=== PATIENT | female | born 1965 | race Caucasian/White ===

== ENCOUNTER 2017-02-13 18:28 | Emergency (ER) | payer BC ==
--- NOTE | 2017-02-13 18:43 | EDPHY ---
H & P Time Seen by Provider: 02/13/17 18:37 HPI/ROS: CHIEF COMPLAINT: Chest pain HISTORY OF PRESENT ILLNESS: The patient is a 51-year-old female presenting with shortness of breath. Onset of difficulty catching her breath 2 weeks ago. She has a frequent need to take a deep breath, but denies SOB with exertion. Associated with intermittent palpitations. She tried her son's albuterol inhaler and found no relief. She denies chest pain, lower extremity pain or swelling. Patient has no cardiac history. REVIEW OF SYSTEMS: A comprehensive 10 point review of systems is otherwise negative aside from elements mentioned in the history of present illness. Past Medical/Surgical History: Denies. Social History: . Lives in [place]. Smoking Status: Never smoked Physical Exam: General Appearance: Alert, pleasant Eyes: Pupils equal and round, no conjunctival pallor or injection ENT, Mouth: Mucous membranes moist Neck: Normal inspection Respiratory: normal respiratory rate, lungs are clear to auscultation, no wheezing Cardiovascular: Regular tachycardia Gastrointestinal: Abdomen is soft and non-tender Neurological: A&O, nonfocal, normal gait Skin: Warm and dry, no rash Extremities: Nontender, no pedal edema Psychiatric: Mood and affect normal Constitutional: Initial Vital Signs Temperature (C) 36.6 C 02/13/17 18:36 Heart Rate 108 H 02/13/17 18:36 Respiratory Rate 18 02/13/17 18:36 Blood Pressure 161/71 H 02/13/17 18:36 O2 Sat (%) 98 02/13/17 18:36 O2 Delivery Mode Room Air O2 (L/minute) 2 Allergies/Adverse Reactions: animal dander Allergy (Verified 02/13/17 18:36) Wheezing Home Medications: Medication Instructions Recorded NK [No Known Home Meds] 02/13/17 Medical Decision Making - Diagnostics EKG Interpretation: EKG interpreted by me reveals sinus tachycardia, rate 105, normal axis, normal intervals, ST and T segments normal. Interpretation: normal EKG Imaging Results: Chest X-Ray 02/13/17 18:38 Impression: No pneumonia. Imaging: Discussed imaging studies w/ photographic printer Radiologist ED Course/Re-evaluation: This patient presents with two weeks of dyspnea at rest. O2 sat 98% on RA, pt occasionally taking a very deep inspiration while I am examining her. Only physical exam finding is tachycardia, HR 90-110. Will order ddimer to eval for PE; no RF for PE. Chest x-ray is normal. D-dimer is slightly elevated. CTA chest ordered. CTA is negative for PE. Lab work is otherwise unremarkable. Patient now feels the need to take a deep inspiration frequently, but is unable to complete the deep inspiration. This is her main concern. Patient ambulated throughout the emergency department and her oxygen level remained 98% on room air. There is no evidence of pneumonia, pneumothorax, PE, acute coronary syndrome. TSH normal ; no evidence for thyrotoxicosis. Ativan 0.5 mg IV given for symptomatic relief. The patient felt better after Ativan. d/w pt anxiety as contributing factor to sx. I feel that she is safe/stable for d/c. She will follow up with her primary care physician. Differential Diagnosis: Differential diagnosis includes though it is not limited to pneumonia, pneumothorax, pulmonary embolism, aortic dissection, pericarditis, acute coronary syndrome. - Data Points Laboratory Results: Laboratory Results 02/13/17 18:53 02/13/17 18:53 Medications Given: Discontinued Medications Lorazepam (Ativan 1 Mg Prepack#4) 1 btl TAKEHOME EDNOW ONE Stop: 02/13/17 20:55 Last Admin: 02/13/17 21:10 Dose: 1 btl Lorazepam (Ativan Injection) 0.5 mg IVP EDNOW ONE Stop: 02/13/17 20:55 Last Admin: 02/13/17 21:10 Dose: 0.5 mg Departure - Departure Disposition: Home, Routine, Self-Care Clinical Impression: Dyspnea Qualifiers: Dyspnea type: shortness of breath Qualified Code(s): R06.02 - Shortness of breath; R06.00 - Dyspnea, unspecified; R06.01 - Orthopnea Condition: Good Instructions: Dyspnea (ED) Additional Instructions: You have a 9mm liver lesion. You will need to have a follow-up ultrasound to reassess this area. It is likely a cyst. Take 1/2 tab of Ativan every 12 hours as needed for anxiety. You are OK to fly. Please followup with your primary care physician when you return home. Referrals: Primary Care Physician, Out of state [Other] - As per Instructions Report Scribed for: Sofia Hill Report Scribed by: Mary Twila Date of Report: 02/13/17 Time of Report: 18:43 Physician Review and Approval Statement: 02/13/17 18:43 Portions of this note were transcribed by a medical officer. I personally performed the history, physical exam, and medical decision-making; and confirmed the accuracy of the information in the transcribed note.
--- NOTE | 2017-02-13 18:44 | CPEKG ---
Heart Rate: 105 RR Interval: 571 P-R Interval: 184 QRSD Interval: 86 QT Interval: 340 QTC Interval: 450 P [place]: 67 QRS [place]: 47 T Wave [place]: 40 EKG Severity - OTHERWISE NORMAL ECG - EKG Impression: SINUS TACHYCARDIA Electronically Signed By: Sofia Hill 13-Feb-2017 21:39:32
[2017-02-13 19:00] LABS: % IMMATURE GRANULYOCYTES 0.1 % (0.0-1.1); ABSOLUTE IMMATURE GRANULOCYTES 0.01 10^3/uL (0.00-0.10); ADD DIFF? NO; ADD MORPH? NO; ADD SCAN? NO; ATYPICAL LYMPHOCYTE FLAG 20 (0-99); FRAGMENT RBC FLAG 0 (0-99); HEMATOCRIT 42.2 % (38.0-47.0); HEMOGLOBIN 14.8 g/dL (12.6-16.3); LEFT SHIFT FLG 0 (0-99); LIPEMIA HEMOLYSIS FLAG 90 (0-99); MEAN CELL HEMOGLOBIN 30.9 pg (27.9-34.1); MEAN CELL HEMOGLOBIN CONCENTR. 35.1 g/dL (32.4-36.7); MEAN CELL VOLUME 88.1 fL (81.5-99.8); MEAN PLATELET VOLUME 10.9 fL (8.7-11.7); PLATELET CLUMPS FLAG 0 (0-99); PLATELET COUNT 216 10^3/uL (150-400); RED BLOOD CELL COUNT 4.79 10^6/uL (4.18-5.33); RED CELL DISTRIBUTION WIDTH 12.5 % (11.5-15.2)
[2017-02-13 19:11] LABS: ANION GAP 13 mEq/L (8-16); CALCIUM 9.6 mg/dL (8.5-10.4); CARBON DIOXIDE 19 mEq/l (22-31); CHLORIDE 105 mEq/L (97-110); CREATININE 0.6 mg/dL (0.6-1.0); GLOMERULAR FILTRATION RATE > 60; GLUCOSE 112 mg/dL (70-100); POTASSIUM 3.3 mEq/L (3.5-5.2); SODIUM 137 mEq/L (134-144)
[2017-02-13 19:23] LABS: TROPONIN I < 0.012 ng/mL (0.000-0.034)
[2017-02-13] MEDS ORDERED: IOPAMIDOL (ISOVUE 370) 100 ML BTL IV ONE (20:10)
[2017-02-13] MEDS ORDERED: LORazepam 2 MG/ML INJ IVP ONE (20:54)
[2017-02-13] MEDS ORDERED: LORAZEPAM 1 MG PREPACK#4 BTL TAKEHOME ONE (20:54)
[2017-02-13 21:24] VITALS: BP 150/90; PULSE 90; RESP 20; TEMP 98.1; O2SAT 97
== END 2017-02-13 21:50 | disposition home or self-care (01) ==
DX: R06.02 Shortness of breath (principal)
CPT/HCPCS: 96374; J2060; Q9967